=== PATIENT | male | born 1965 | race Asian ===

== ENCOUNTER 2018-05-13 20:40 | Emergency (ER) | payer BC ==
[~2018-05-13] VITALS: Ht 177.8 cm; Wt 78.0 kg
[2018-05-13 20:53] VITALS: BP_SYST 132
--- NOTE | 2018-05-13 20:53 | NUR ---
Patient to [facility] for evaluation. Side rails up. Will assume care of patient.
--- NOTE | 2018-05-13 21:00 | NUR ---
Patient brought in with with splint to left lower leg and crutches. Complaining of left leg pain today after running. Was seen in Urgent Care and splinted. Pain 09/01. Pain increases with palpation. No other complaints/injuries per patient or as noted. Will continue to monitor.
--- NOTE | 2018-05-13 21:27 | NUR ---
DELON Alcala at bedside examining patient.
[2018-05-13] MEDS ORDERED: IBUPROFEN 800 MG TABLET PO ONE (21:30)
--- NOTE | 2018-05-13 21:55 | NUR ---
Xray at bedside.
[2018-05-13 23:03] VITALS: BP_SYST 110
--- NOTE | 2018-05-13 23:05 | NUR ---
Patient given written and verbal discharge instructions and verbalizes understanding. ER MD discussed with patient the results and treatment provided. Patient in stable condition. ID arm band removed. Rx of Ibuprofen given. Patient educated on pain management and to follow up with PMD. Pain Scale 3/10 tolerable for patient Opportunity for questions provided and answered. Medication side effect fact sheet provided.
== END 2018-05-13 23:08 | disposition home or self-care (01) ==
LOC: SED 20:40
DX: M79.605 Pain in left leg (principal); E11.9 Type 2 diabetes mellitus without complications; R03.0 Elevated blood-pressure reading, without diagnosis of hypertension
CPT/HCPCS: 73590-TC; 93971; 99284